=== PATIENT | female | born 1960 | race Caucasian/White ===

== ENCOUNTER → 2018-03-13 16:54 | Outpatient (CLI) | payer OTHER, SELFPAY ==
--- NOTE | 2018-03-13 17:33 | MRI_ITS ---
STUDY: MRI BRAIN WITH AND WITHOUT CONTRAST REASON FOR EXAM: Female, 57 years old. Multiple sclerosis, recheck. No new symptoms. TECHNIQUE: Standardized multiplanar fat and water weighted pulse sequences were obtained. 8 ml of Gadavist contrast material was administered intravenously for the contrast portion of the examination. COMPARISON: None. FINDINGS: There is mild cerebral atrophy with widening of the extra-axial spaces and ventricular dilatation. There are diffuse periventricular/pericallosal and subcortical white matter signal abnormalities which in comparison to the March 2016 exam are in a very similar distribution without evidence of new focal lesion. Postcontrast exam demonstrates no evidence of enhancement to suggest active demyelination. There is an overall pericallosal T1 low signal similar to prior exam.There is no evidence for recent intracranial ischemia or other cause of cytotoxic edema on diffusion weighted imaging (DWI). Normal T2* images of the brain without demonstrated susceptibility artifact. There is no demonstrated hemosiderin stain. Normal bilateral basal ganglia. Normal thalami. There is no extra-axial fluid accumulation. Normal flow voids within the major intracranial circulation suggesting patency by spin echo criteria. Normal venous enhancement. There is no enhancing intra-axial or extra-axial abnormality. Normal sella turcica, pituitary gland, infundibular stalk, optic chiasm and hypothalamus. Normal tectal plate and pineal gland. Normal midbrain, kristian and medulla. Normal cerebellum. Normal basal cisterns. Normal bilateral temporal bones. Normal bilateral internal auditory canals. No demonstrated orbital abnormality, within the constraints of a routine brain study. Normal visualized paranasal sinuses. Normal calvarium and skull base. Normal visualized soft tissue structures. Normal visualized upper cervical spine. MRI/Brain W/WO Contrast IMPRESSION: Overall similar pericallosal, periventricular and subcortical white matter diffuse lesions consistent with known demyelination compared to the 05 March 2016 exam. No evidence of active demyelination with enhancement. No evidence of acute intracranial process. Electronically Signed: Colby James DO at 20:26 EDT , Service support ,
== END ==
PROVIDERS: Family Provider Family Medicine; PCP Family Medicine
DX: G35 Multiple sclerosis (principal)
CPT/HCPCS: 70553; A9585

== ENCOUNTER → 2018-04-24 07:04 | Outpatient (CLI) | payer OTHER, SELFPAY ==
[2018-04-24 10:43] LABS: Absolute Neutrophil Count 2.3 X10^3/uL (2.0-7.7); Basophil# 0.02 X10^3/uL; Basophil% 0.3 % (0-1); Eosinophil# 0.16 X10^3/uL; Eosinophils% 2.7 % (0-5); Hematocrit 42.6 % (37-47); Hemoglobin 14.1 g/dl (12.0-15.0); Mean Corp Hgb Conc 33.1 g/gl (32-36); Mean Corpuscular Hgb 31.3 pg (27.0-32.0); Mean Corpuscular Volume 94.7 fL (81-99); Mean Platelet Vol. 9.8 fl (6.2-12.0); Monocyte# 0.65 X10^3/uL; Monocyte% 11.1 % (0-10); Neutrophil # 2.34 X10^3/uL (2.7-7.7); Neutrophil % 39.9 % (47-70); Platelet Count 267 K/mm3 (150-450); RBC Distribution Width CV 12.9 % (11.6-14.6); RBC Distribution Width SD 44.2 fl (35.1-43.9); White Blood Count 5.9 K/mm3 (4.4-11.0)
[2018-04-24 10:47] LABS: T4 Free Direct 0.84 ng/dL (0.76-1.46); Thyroid Stim Hormone (TSH) 5.34 uIU/mL (0.358-3.74); Vitamin D,25 Hydroxy 48.8 ng/mL (29.95-100.01)
[2018-04-24 10:50] LABS: POSITIVE COUNT NO; POSITIVE DIFFERENTIAL NO; POSITIVE MORPHOLOGY NO
== END ==
PROVIDERS: Family Provider Family Medicine; PCP Family Medicine; Visit Provider Family Medicine
DX: G35 Multiple sclerosis (principal)
CPT/HCPCS: 82306; 84439; 84443; 85025

== ENCOUNTER → 2018-05-05 13:13 | Outpatient (CLI) | payer OTHER, SELFPAY | PROVIDERS: Family Provider Family Medicine; PCP Family Medicine; Visit Provider Obstetrics & Gynecology | DX: N95.0 Postmenopausal bleeding (principal) | CPT/HCPCS: 76830; 76856; 93976 ==

== ENCOUNTER → 2018-10-27 10:12 | Outpatient (CLI) | payer OTHER, SELFPAY ==
[2018-10-27 12:32] LABS: T4 Free Direct 1.81 ng/dL (0.76-1.46); Thyroid Stim Hormone (TSH) 0.04 uIU/mL (0.358-3.74)
== END ==
PROVIDERS: Family Provider Family Medicine; PCP Family Medicine; Referring Provider Family Medicine; Visit Provider Family Medicine
DX: E03.9 Hypothyroidism, unspecified (principal)
CPT/HCPCS: 36415; 84439; 84443

== ENCOUNTER → 2019-01-23 14:52 | Outpatient (CLI) | payer OTHER, SELFPAY ==
[2019-01-23 18:01] LABS: T4 Free Direct 1.21 ng/dL (0.76-1.46); Thyroid Stim Hormone (TSH) 0.08 uIU/mL (0.358-3.74)
== END ==
PROVIDERS: Family Provider Family Medicine; PCP Family Medicine; Referring Provider Family Medicine; Visit Provider Family Medicine
DX: E03.9 Hypothyroidism, unspecified (principal)
CPT/HCPCS: 36415; 84439; 84443

== ENCOUNTER → 2019-03-15 11:01 | Outpatient (CLI) | payer OTHER, SELFPAY ==
[2019-03-15 12:51] LABS: T4 Free Direct 1.29 ng/dL (0.76-1.46); Thyroid Stim Hormone (TSH) 0.27 uIU/mL (0.358-3.74)
== END ==
PROVIDERS: Family Provider Family Medicine; PCP Family Medicine; Referring Provider Family Medicine; Visit Provider Family Medicine
DX: E03.9 Hypothyroidism, unspecified (principal)
CPT/HCPCS: 36415; 84439; 84443

== ENCOUNTER → 2019-05-30 13:57 | Outpatient (CLI) | payer OTHER, SELFPAY ==
[2019-06-06 12:59] LABS: HPV Reflexed? NOT INDICATED
== END ==
PROVIDERS: Visit Provider Obstetrics & Gynecology
DX: Z12.4 Encounter for screening for malignant neoplasm of cervix (principal)
CPT/HCPCS: 88175; G0145

== ENCOUNTER → 2019-06-19 08:39 | Outpatient (CLI) | payer OTHER, SELFPAY ==
--- NOTE | 2019-06-19 08:41 | BI_ITS ---
MAMMOGRAPHY - BILATERAL SCREENING REASON FOR EXAM: Female, 58 years old. Routine annual screening examination. PERTINENT HISTORY: Non-contributory. TECHNIQUE: Digital bilateral breast tyrese (3D mammographic acquisition) in the CC and MLO projections. 2-D mediolateral oblique (MLO) and craniocaudad (CC) views of both breasts were obtained. CAD: Full Field Digital Mammography with Computer Added Detection was performed. COMPARISON: Comparison is made with prior study dated August 05, 2017 and July 26, 2016. FINDINGS: Breast Composition: There are scattered areas of fibroglandular density. There are no dominant masses or suspicious calcifications. Stable benign-appearing small bilateral axillary lymph nodes. No other significant abnormalities are identified. There has been no significant change since the prior study. BI/SCREEN MAMM (CAD) W/TYRESE BILAT IMPRESSION: Stable bilateral screening mammogram. Yearly follow-up mammogram recommended. (A) ASSESSMENT CATEGORY: BIRADS Category 2: Benign. A letter regarding these results will be sent to the patient by the facility within 30 days. Approximately 10% of breast cancers are not detected by mammography. A normal mammogram should not delay biopsy of a clinically suspicious abnormality. [id number] Electronically Signed: Darren Pugh, at 9:46 EDT , Service support ,
== END ==
PROVIDERS: Family Provider Family Medicine; PCP Family Medicine; Referring Provider Obstetrics & Gynecology; Visit Provider Obstetrics & Gynecology
DX: Z12.31 Encounter for screening mammogram for malignant neoplasm of breast (principal)
CPT/HCPCS: 77063; 77067

== ENCOUNTER → 2020-02-04 08:17 | Outpatient (CLI) | payer OTHER, SELFPAY ==
[2020-02-04 11:31] LABS: T4 Free Direct 1.05 ng/dL (0.76-1.46); Thyroid Stim Hormone (TSH) 4.37 uIU/mL (0.358-3.74)
== END ==
PROVIDERS: PCP Family Medicine; Referring Provider Family Medicine; Visit Provider Family Medicine
DX: E03.9 Hypothyroidism, unspecified (principal); E55.9 Vitamin D deficiency, unspecified
CPT/HCPCS: 36415; 82306; 84439; 84443

== ENCOUNTER → 2020-03-04 07:16 | Outpatient (CLI) | payer OTHER, SELFPAY ==
[2020-03-04 12:31] LABS: Free T3 1.8 pg/mL (2.18-3.98); T4 Free Direct 1.08 ng/dL (0.76-1.46); Thyroid Stim Hormone (TSH) 1.14 uIU/mL (0.358-3.74)
== END ==
PROVIDERS: PCP Family Medicine; Referring Provider Family Medicine; Visit Provider Family Medicine
DX: E03.9 Hypothyroidism, unspecified (principal)
CPT/HCPCS: 36415; 84439; 84443; 84481

== ENCOUNTER → 2020-07-11 11:56 | Outpatient (CLI) | payer OTHER, SELFPAY ==
--- NOTE | 2020-07-11 12:01 | BI_ITS ---
MAMMOGRAPHY - BILATERAL SCREENING REASON FOR EXAM: Female, 59 years old. Routine annual screening examination. PERTINENT HISTORY: Non-contributory. TECHNIQUE: Digital bilateral breast tyrese (3D mammographic acquisition) in the CC and MLO projections. 2-D mediolateral oblique (MLO) and craniocaudad (CC) views of both breasts were obtained. CAD: Full Field Digital Mammography with Computer Added Detection was performed. COMPARISON: Comparison is made with prior study dated 06/19/2019 and 08/05/2017. FINDINGS: Breast Composition: There are scattered areas of fibroglandular density. There are no dominant masses or suspicious calcifications. Stable small benign appearing bilateral axillary lymph nodes. No other significant abnormalities are identified. There has been no significant change since the prior study. BI/SCREEN MAMM (CAD) W/TYRESE BILAT IMPRESSION: Stable bilateral screening mammogram. Yearly follow-up mammogram recommended. (A) ASSESSMENT CATEGORY: BIRADS Category 2: Benign. A letter regarding these results will be sent to the patient by the facility within 30 days. Approximately 10% of breast cancers are not detected by mammography. A normal mammogram should not delay biopsy of a clinically suspicious abnormality. [id number] Electronically Signed: Darren Pugh, at 13:39 EST , Service support ,
== END ==
PROVIDERS: PCP Family Medicine; Referring Provider Student in an Organized Health Care Education/Training Program; Visit Provider Student in an Organized Health Care Education/Training Program
DX: Z12.31 Encounter for screening mammogram for malignant neoplasm of breast (principal)
CPT/HCPCS: 77063; 77067

== ENCOUNTER 2020-11-20 13:35 | Outpatient (RCR) | payer OTHER, SELFPAY ==
[2020-11-20] MEDS: COVID-19 VACC, MRNA(PFIZER)/PF 30 MCG/0.3 ML SYRINGE IM (09:56)
== END 2021-02-10 23:59 ==
LOC: IMMUN 13:35
PROVIDERS: PCP Family Medicine; Visit Provider Family Medicine
DX: Z23 Encounter for immunization (principal)
CPT/HCPCS: 0001A; 0002A; 91300

== ENCOUNTER → 2021-07-13 08:00 | Outpatient (CLI) | payer OTHER, SELFPAY ==
--- NOTE | 2021-07-13 08:03 | BI_ITS ---
MAMMOGRAPHY - BILATERAL SCREENING REASON FOR EXAM: Female, 60 years old. Routine annual screening examination. PERTINENT HISTORY: Non-contributory. TECHNIQUE: Digital bilateral breast tyrese (3D mammographic acquisition) in the CC and MLO projections. 2-D mediolateral oblique (MLO) and craniocaudad (CC) views of both breasts were obtained. CAD: Full Field Digital Mammography with Computer Added Detection was performed. COMPARISON: Comparison is made with prior study dated 07/11/2020 and 06/19/2019. FINDINGS: Breast Composition: There are scattered areas of fibroglandular density. There are no dominant masses or suspicious calcifications. Stable benign-appearing bilateral axillary lymph nodes. No other significant abnormalities are identified. There has been no significant change since the prior study. BI/SCRN MAMM (CAD)W/TYRESE BILAT IMPRESSION: Stable bilateral screening mammogram. Yearly follow-up mammogram recommended. (A) ASSESSMENT CATEGORY: BIRADS Category 2: Benign. A letter regarding these results will be sent to the patient by the facility within 30 days. Approximately 10% of breast cancers are not detected by mammography. A normal mammogram should not delay biopsy of a clinically suspicious abnormality. [id number] Electronically Signed: Darren Pugh MD at 8:59 EST , Service support ,
== END ==
PROVIDERS: PCP Family Medicine; Referring Provider Student in an Organized Health Care Education/Training Program; Visit Provider Student in an Organized Health Care Education/Training Program
DX: Z12.31 Encounter for screening mammogram for malignant neoplasm of breast (principal)
CPT/HCPCS: 77063; 77067

== ENCOUNTER 2021-11-24 07:28 | Outpatient (CLI) | payer OTHER, SELFPAY ==
[2021-11-24 10:11] LABS: Anion Gap 6 (5-15); BUN 20 mg/dL (7-18); Calcium,Total 9.2 mg/dL (8.5-10.1); Chloride 110 mmol/L (98-107); Cholesterol 192 mg/dL (200); Creatinine, Serum 1.05 mg/dL (0.55-1.02); EST Glomerular Filtration Rate 57 mL/min (>60); Est Glom Filt Rate - Afr Amer 69 mL/min (>60); Glucose 90 mg/dL (74-106); High Density Lipoprotein 52 mg/dL; Sodium Level 139 mmol/L (136-145); T4 Free Direct 1.14 ng/dL (0.76-1.46); Thyroid Stim Hormone (TSH) 2.45 uIU/mL (0.358-3.74); Triglycerides 96 mg/dL; Very Low Density Lipoprotein 19 mg/dL (5-40)
== END 2021-11-24 23:59 | disposition home or self-care (01) ==
LOC: MTLAB 07:30
PROVIDERS: PCP Family Medicine; Referring Provider Family Medicine; Visit Provider Family Medicine
DX: E03.9 Hypothyroidism, unspecified (principal); Z13.220 Encounter for screening for lipoid disorders
CPT/HCPCS: 36415; 80048; 80061; 84439; 84443

== ENCOUNTER → 2022-07-14 | Outpatient (CLI) | payer OTHER, SELFPAY ==
[2022-07-14 10:55] LABS: Vitamin D,25 Hydroxy 54.7 ng/mL
[2022-07-14 11:01] LABS: Cholesterol 207 mg/dL (200); High Density Lipoprotein 64 mg/dL; T4 Free Direct 1.25 ng/dL (0.76-1.46); Thyroid Stim Hormone (TSH) 2.16 uIU/mL (0.358-3.74); Triglycerides 106 mg/dL; Very Low Density Lipoprotein 21 mg/dL (5-40)
== END | disposition home or self-care (01) ==
LOC: MTLAB 08:07
PROVIDERS: PCP Family Medicine; Visit Provider Family Medicine
DX: E55.9 Vitamin D deficiency, unspecified (principal); E03.9 Hypothyroidism, unspecified; Z13.220 Encounter for screening for lipoid disorders
CPT/HCPCS: 36415; 80061; 82306; 84439; 84443

== ENCOUNTER → 2022-08-13 | Outpatient (CLI) | payer OTHER, SELFPAY ==
[2022-08-21 21:00] LABS: HPV APTIMA, High Risk Negative (Negative)
== END | disposition home or self-care (01) ==
LOC: LABSPEC 10:33
PROVIDERS: PCP Family Medicine; Visit Provider Student in an Organized Health Care Education/Training Program
DX: Z12.4 Encounter for screening for malignant neoplasm of cervix (principal)
CPT/HCPCS: 87624; 88175; G0145

== ENCOUNTER → 2022-08-20 | Outpatient (CLI) | payer OTHER, SELFPAY ==
--- NOTE | 2022-08-20 13:43 | BI_ITS ---
MAMMOGRAPHY - BILATERAL SCREENING REASON FOR EXAM: Female, 61 years old. Routine annual screening examination. PERTINENT HISTORY: Non-contributory. TECHNIQUE: Digital bilateral breast tyrese (3D mammographic acquisition) in the CC and MLO projections. 2-D mediolateral oblique (MLO) and craniocaudad (CC) views of both breasts were obtained. CAD: Full Field Digital Mammography with Computer Added Detection was performed. COMPARISON: Comparison is made with prior study dated 07/13/2021 and 07/11/2020. FINDINGS: Breast Composition: There are scattered areas of fibroglandular density. There are no dominant masses or suspicious calcifications. Stable small benign-appearing bilateral axillary lymph. No other significant abnormalities are identified. There has been no significant change since the prior study. BI/SCRN MAMM (CAD)W/TYRESE BILAT IMPRESSION: Stable bilateral screening mammogram. Yearly follow-up mammogram recommended. (A) ASSESSMENT CATEGORY: BIRADS Category 2: Benign. A letter regarding these results will be sent to the patient by the facility within 30 days. Approximately 10% of breast cancers are not detected by mammography. A normal mammogram should not delay biopsy of a clinically suspicious abnormality. [id number] Electronically Signed: Darren Pugh MD at 15:09 EST ,
== END | disposition home or self-care (01) ==
LOC: OPBI 13:42
PROVIDERS: PCP Family Medicine; Referring Provider Student in an Organized Health Care Education/Training Program; Visit Provider Student in an Organized Health Care Education/Training Program
DX: Z12.31 Encounter for screening mammogram for malignant neoplasm of breast (principal)
CPT/HCPCS: 77063; 77067

== ENCOUNTER → 2023-06-06 | Outpatient (CLI) | payer OTHER, SELFPAY ==
[2023-06-06 09:37] LABS: Bacteria 0 SEEN /hpf (None Seen); Mucous, Urine 0 SEEN /hpf (<or=2+); Red Blood Cells-Urine 0 SEEN /hpf (0-5); White Blood Cells 0 SEEN /hpf (0-5)
[2023-06-06 12:15] LABS: Hematocrit 42.7 % (37-47); Hemoglobin 14.4 g/dL (12.0-15.0); Mean Corp Hgb Conc 33.7 g/dL (32-36); Mean Corpuscular Hgb 31.1 pg (27.0-32.0); Mean Corpuscular Volume 92.2 fL (81-99); Mean Platelet Vol. 10.2 fl (6.2-12.0); Platelet Count 284 K/mm3 (150-450); RBC Distribution Width SD 40.7 fl (35.1-43.9); Red Blood Count 4.63 M/mm3 (4.2-5.4); White Blood Count 4.6 K/mm3 (4.4-11.0)
[2023-06-06 12:40] LABS: Vitamin B12 356 pg/mL (211-911); Vitamin D,25 Hydroxy 44.2 ng/mL
[2023-06-06 13:02] LABS: ALB/GLOB Ratio 0.9 RATIO (0.9-2.4); AST(SGOT) 21 U/L (15-37); Alanine Aminotransfer ALT/SGPT 32 U/L (13-56); Albumin, Serum 3.6 g/dL (3.2-5.0); Alkaline Phosphatase 60 U/L (45-117); Anion Gap 7 (5-15); BUN 20 mg/dL (7-18); BUN/Creat Ratio 21.2 RATIO (10-20); Calcium,Total 8.9 mg/dL (8.5-10.1); Chloride 106 mmol/L (98-107); Cholesterol 197 mg/dL (200); Creatinine, Serum 0.94 mg/dL (0.55-1.02); EST Glomerular Filtration Rate 64 mL/min (>60); Est Glom Filt Rate - Afr Amer 78 mL/min (>60); Globulin 4.2 g/dL (2.2-4.2); Glucose 81 mg/dL (74-106); High Density Lipoprotein 53 mg/dL; Iron 125 ug/dL (50-170); Potassium 3.9 mmol/L (3.5-5.1); Protein, Total 7.8 g/dL (6.4-8.2); Sodium Level 138 mmol/L (136-145); Thyroid Stim Hormone (TSH) 1.14 uIU/mL (0.358-3.74); Triglycerides 111 mg/dL; Very Low Density Lipoprotein 22 mg/dL (5-40)
[2023-06-06 15:44] LABS: Color, Urine Yellow (Yellow); Glucose, Dipstick Normal (Normal); Ketone-Dipstick Negative (Negative); Leukocyte Esterase-Dipstick Negative /ul (Negative); Nitrite-Dipstick Negative (Negative); Occult Blood-Urine Negative /ul (Negative); Protein-Dipstick Negative (Negative); Urine Bilirubin Dipstick Negative (Negative); Urine Clarity Sl. Cloudy (Clear); Urine Urobilinogen Normal (Normal)
[2023-06-06 16:30] LABS: Squamous Epithelial Cells - UA 0-5 SEEN /hpf (5-10)
== END | disposition home or self-care (01) ==
PROVIDERS: PCP Family Medicine; Referring Provider Family Medicine; Visit Provider Family Medicine
DX: E03.9 Hypothyroidism, unspecified (principal); Z71.3 Dietary counseling and surveillance; V65 Occupant of heavy transport vehicle injured in collision with railway train or railway vehicle; E55.9 Vitamin D deficiency, unspecified
CPT/HCPCS: 36415; 80053; 80061; 81001; 82306; 82607; 83540; 84443; 85027

== ENCOUNTER 2023-10-11 10:00 | Outpatient (RCR) | payer OTHER, SELFPAY ==
--- NOTE | 2023-08-15 09:43 | HP.PTEVAL ---
Patient's Visit Information Visit Information Visit Information: DAT CISNEROS is a 62 year old F referred to Physical Therapy by JP STEPHENS with a diagnosis of MS. Date of Evaluation: 08/15/23 Physical Therapist: José Henson, CMT, OCS, CSCS Visit Plan Frequency: 1x/Week Duration: 4-6 Weeks Plan: weekly x 4-6 to tweak HEP regarding: HS and gastroc streetch added today and pt to tweak HEP to ensure challenges on machines at [employer] for LE which she was already consistent with. If doing well next session, add ankle strength(band and SLS) and review her core exercises and how walking is going\ will f/u in 3 weeks due to busy holiday for patient. Subjective Subjective: Stephenie had MS for 16 yrs. used to walk long distances but in the last year has become more of a problem. Had to stop meds for a month last year and thinks she is worse since then. Had MRI in May and had some additional plaques. Friends think she is limping but she does not notice it. Went to MS doctor last week. She is here to see if she is limping. Retired. Sleep is Ok. Works out at [employer] 3-4x/week 30 min TM walking, R foot drags at 25 min. Got hiking sticks and walks [employer] but half way foot started to drag on R. 45 minutes to get around and get to car. leg press, hip abduction and does many machines for arms and legs and does sit ups and core workout. Basic aDLS are all good. No problems. Shopping no problem, just can't walk as far as she used to with fitness. Hobbiesl stitchery and cross stich. No problem. Objective Objective: Walks slightly wide SHANTELL and R foot slightly turned out with some diminished motor control once she is tired. Steps reciprocally with one rail. trasnfer I. AROM B hips and knees and ankles WFL -25 90/90 test, HS mod tight and 0 Df AROM max gastroc [id number]. strength LE 4/5 hips and knees and 4- ankle DF inv/ev. reflexes 2+/3 B patella and achilles with clonus sensation WNL to gross light touch in LE. Able to march and has good balance, can walk on toes but hard time walking on heels Balance/Special Test Scores Functional Gait Assessment Score: 29 % Disability: 3.3400 Lower Extremity Functional Score: 71 Goals Goal 1:: I appropriate HS stretching and ankle strength and approrpiate gym ex challenge. Goal Time Frame: 4-6 Weeks Goal 2:: Patient ambulate 30 minutes with difficulty Goal Time Frame: 4-6 Weeks Goal 3:: Pt feel 50% better overall. Goal Time Frame: 4-6 Weeks Rehabilitation Potential Physical Therapy Diagnosis: tighhtness and weakness creating difficulty with longer walks. Rehabilitation Potential: Good Anticipated Interventions Patient/Client Instruction: Educate patient on: Condition For the Purpose of:: To decrease pain, To increase ROM, To improve nutrient delivery to tissue and To improve muscle performance and motor function Therapeutic Exercise to Include: Strength training, Balance training and Flexibilty training For the Purpose of:: To improve nutrient delivery to tissue, To improve muscle performance and motor function and To increase tolerance to activity/condition/position Text: Thank you for the opportunity to evaluate your patient. For Medicare and Medicare HMO plans, please review the plan of care and approve it. It will need to be FAXED BACK to us at [phone] for Medicare purposes. For Medicare only, by signing this I certify the plan of care. Please let me know if there are questions or concerns regarding this plan of care. Physician Signature: Date:
--- NOTE | 2023-10-11 10:19 | HP.PTDCSUM ---
Discharge Summary D/C summary: It has been my pleasure to treat DAT CISNEROS referred by JP STEPHENS, with the diagnosis of MS for a total of 4 visit(s). Discharge Date: 10/11/23 Please see the following information for a summary of their discharge status. Subjective Subjective: Been doing workout at [employer] without a problem. Avoids longer walk sometimes as she is afraid of getting stuck(tired) and have to rest. Cannot stand on one foot. No pain. To doctor last August. MS doctor in November. Started new drug Overall Improvement % Improvement: 30 Objective Objective/Function: Walks without deficits today, steps reciprocal with one rail. SLS 10 seconds l and 6 on R. Walking on toes easily. Overall doing well. Goals Goal 1:: I appropriate HS stretching and ankle strength and approrpiate gym ex challenge. Goal Progress: Goal Met Goal 2:: Patient ambulate 30 minutes with difficulty Goal Progress: Goal Met Goal 3:: Pt feel 50% better overall. Goal Progress: Progressing Plan Plan: d/c to HEP and gym D/C Information Discharge Comments: Continue I in gym and via home walking program. d/c sentence: If there are questions or concerns regarding this patient's physical therapy, please feel free to call me at [phone]. Thank you for the referral of this patient. Sincerely, José Henson, DPT, OCS, CSCS Balance/Gait/Functional tests Balance/Special Test Scores Functional Gait Assessment Score: 29 % Disability: 3.3400 Lower Extremity Functional Score: 70 Improvement % Improvement: 30
== END 2023-10-11 19:00 | disposition home or self-care (01) ==
LOC: PT 10:00
PROVIDERS: PCP Family Medicine
DX: G35 Multiple sclerosis (principal)
CPT/HCPCS: 97110; 97161

== ENCOUNTER → 2023-10-11 | Outpatient (CLI) | payer OTHER, SELFPAY ==
--- OUTSIDE RECORDS SUMMARY | 2023-10-11 11:44 | XMS RPT_ITS | CCD ---
Author Name Unknown Address [address] [place] [address] [address] [place] [address] Organization [facility] Care Team Providers Care Unix Developer Name Role Phone Jonathon Perez MD Primary Care Provider JP STEPHENS Referring Unavailable JONATHON PEREZ Primary Care Unavailabl e Medications Completed/Discontinued Medications Medication Drug Class(es) Dates Sig (Normalized) Sig (Original) cholecalciferol 0.125 mg oral capsule (6 sources) Vitamin D take 1 capsule by mouth once daily Cholecalciferol, Vitamin D3, 5,000 unit cap Take 5,000 Units by mouth once daily. 0 Active Problems Problem Classification Problem Date Documented Da te Episodic/Chronic Multiple sclerosis (8 sources) Multiple sclerosis; Translations: [Multiple sclerosis] Onset: 01-24-2013 01-24-2013 Chronic Other aftercare (1 source) Patient encounter status; Translations: [Encounter for therapeutic drug level monitoring] Episodic Results Test Name Value Interpretation Reference Range Facil ity Encounters Encounter Date Encounter Type Care Provider Facility Start: 06-28-2023 End: 06-28-2023 ambulatory JP STEPHENS Facility:[facility] Start: 09-18-2022 Refill Emeli Thomas PA-C Work Phone: [facility] Procedures Date Procedure Procedure Detail Performing Clinician Start: 06-21-2022 BRAIN & CERVICAL SPI NE MRI DISCRETE DATA [facility] Provider Start: 06-21-2022 Mri brain brain stem w/o w/contrast material Emeli Thomas PA-C Work Phone: Start: 12-22-2021 Adult depression screening assessment Emeli Thomas PA-C Work Phone: Start: 11-13-2019 Adult depression screening assessment Emeli Thomas PA-C Work Phone: Plan of Treatment Date Care Activity Detail Author Start: 05-27-2025 DIABETES SCREEN DIABETES SCREEN [facility] Start: 12-24-2023 DIABETES SCREEN DIABETES SCREEN [facility] Start: 12-22-2022 Adult depression scr eening assessment DEPRESSION SCREENING [facility] Start: 09-05-2022 DEPRESSION ASSESSMENT DEPRESSION ASS [facility] Start: 05-06-2022 Influenza vaccination [facility] Start: 03-23-2022 COVID-19 VACCINE (5 - Booster for Pfizer series) COVID-19 VACCINE (5 - Booster for Pfizer series) [facility] Start: 01-09-2022 COVID-19 VACCINE (4 - Booster for Pfizer series) COVID-19 VACCINE (4 - Booster for Pfizer series) [facility] Start: 09-05-2021 [facility] Start: 05-27-2021 COVID-19 VACCINE (3 - Booster for Pfizer series) COVID-19 VACCINE (3 - Booster for Pfizer series) [facility] Start: 11-12-2020 Adult depression scr eening assessment DEPRESSION SCREENING [facility] Start: 2012 SHINGRIX VACCINE (1 of 2) SHINGRIX V ACCINE (1 of 2) [facility] Start: 2007 COLOGUARD (FIT-DNA) COLOGUARD (FIT-D NA) [facility] Start: 2007 Colonoscopy COLONOSCOPY [facility] Start: 2007 COLORECTAL CANCER SCREENING COLORECTAL CANCER SCREENING [facility] Start: [address] COLONOGRAPHY [facility] Start: 2007 FECAL OCCULT BLOOD FECAL OCCULT BLOO D [facility] Start: 2007 LIPID SCREEN LIPID SCREEN [facility] Start: 2007 SIGMOIDOSCOPY SIGMOIDOSCOPY [facility] Start: 2002 Mammography MAMMOGRAM [facility] Start: 1992 HPV TESTING HPV TESTING [facility] Start: 1983 PAP TESTING PAP TESTING [facility] Start: 1981 Urine microalbumin profile DTAP,TDAP ,TD (1 - Tdap) [facility] Start: 1980 HEPATITIS C SCREENING HEPATITIS C SC REENING [facility] Start: 1980 HIV SCREENING [facility] SCREENING [facility] Payers Date Payer Category Payer Unknown [id number] 2018 Unknown MMO MMO [employer] [id number] 2018-Present [phone] [address] [place] [address] PPO [id number] 2018 Unknown MMO MMO [employer] [id number] 2018-Present [phone] [address] [place] [address] PPO [id number] Social History Date Type Detail Facility Start: 02-19-2016 Tobacco smoking stat us [facility] Never smoked tobacco [facility] Start: 12-23-2020 Alcohol intake Current drinke r of alcohol (finding) [facility] Start: 1960 Sex Assigned At Female [facility] Start: 11-23-2021 End: 12-03-2021 Exposure to SARS-CoV-2 (event) Not sure [facility] Start: 02-19-2016 Tobacco use and exposure Smoke less tobacco non-user [facility] Progress note 06-28-2023 Note Date & Type Note Facility 06-28-2023 Note HNO ID: [id number] Author: Ira Jimenes RT(R) Service: ? Author Type: Technologist Type: Progress Notes Filed: 06/28/2023 2:22 PM Note Text: Radiology Service Progress Note DATE OF SERVICE: June 28, 2023 TIME: 2:21 PM PATIENT IDENTITY VERIFICATION COMPLETED USING TWO (2) STANDARD IDENTIFIERS: Name and Date of confirmed by patient verbally. FALL SCREENING: Has the patient had 2 falls in the last year or 1 fall with injury or currently using an Ambulatory Assistive Device (Walker, Cane, Wheelchair, Crutches, etc.)? No PATIENT GENDER DATA: Female. status: : No status: NO. PATIENT RELEVANT IMPLANT DATA REVIEWED: Yes ALLERGIES: Reviewed and unchanged CONTRAST ALLERGY: NO. EXAM: MRI - CONTRAST TYPE: GROUP II PERIPHERAL IV DATA: Ambulatory: A peripheral IV was started in the Left antecubital site with a Angio cath: 22 gauge. RADIOLOGY DEPARTMENT: MR; Exam(s) Completed: Head: Multiple Sclerosis SIGNATURE: Ira Jimenes RT(R) PATIENT NAME: Dat Cisneros DATE: June 28, 2023 TIME: 2:21 PM [facility] Note 09-20-2022 Telephone Encounter - FEDE Palomares - 09/20/2022 10:41 AM EST Note Date & Type Note Facility 09-20-2022 Miscellaneous Notes Formattin g of this note is different from the original. Source : mychart from pharmacy requesting refill. Delivery : e-script Requested Prescriptions Pending Prescriptions Disp Refills AVONEX 30 mcg/0.5 mL injection pen kit [Pharmacy Med Name: AVONEX 30 MCG AUTOINJ 4 PEN KIT] 1 Kit 1 Sig: INJECT 0.5 ML (30 MCG) INTO THE MUSCLE ONCE A WEEK DX : Patient last seen 12/24/2021 Next Appointment : FEDE Palomares documented in this encounter [facility] Progress note 09-07-2022 Note Date & Type Note Facility 09-07-2022 Note HNO ID: [id number] Author: FEDE Palomares Service: ? Author Type: Health Hospitality Aide Type: Progress Notes Filed: 10/05/2022 12:54 PM Note Text: Requested by: Primitive Makeup Freed: [id number] Medication Requested: Avonex Insurance Name: MMO [employer] Insurance [place] phone #:[phone] Status pending Previous request approved to 11/22/2022 [facility] History of Present illness Narrative 09-07-2022 FEDE Palomares - 09/07/2022 12:01 PM EST Note Date & Type Note Facility 09-07-2022 History of Presen t illness Narrative Requested by: Primitive Makeup Freed: [id number] Medication Requested: Avonex Insurance Name: MMO [employer] Insurance [place] phone #:[phone] Status pending Previous request approved to 11/22/2022 documented in this encounter [facility] Note 08-02-2022 Telephone Encounter - FEDE Palomares - 08/02/2022 9:41 AM EST Note Date & Type Note Facility 08-02-2022 Miscellaneous Notes Formattin g of this note is different from the original. Source : electronic from pharmacy requesting refill. Delivery : e-script Requested Prescriptions Pending Prescriptions Disp Refills AVONEX 30 mcg/0.5 mL injection pen kit [Pharmacy Med Name: AVONEX 30 MCG AUTOINJ 4 PEN KIT] 1 Kit Sig: INJECT 30 MCG INTO THE MUSCLE ONCE A WEEK DX : Patient last seen 12/23/2020 Next Appointment : none FEDE Palomares documented in this encounter [facility] History of Present illness Narrative 06-21-2022 RT Barbara(R) - 06/21/2022 8:00 AM EDT Note Date & Type Note Facility 06-21-2022 History of Presen t illness Narrative Radiology Service Progress Note DATE OF SERVICE: June 21, 2022 TIME: 9:46 AM PATIENT IDENTITY VERIFICATION COMPLETED USING TWO (2) STANDARD IDENTIFIERS: Name and Date of confirmed by patient verbally. FALL SCREENING: Has the patient had 2 falls in the last year or 1 fall with injury or currently using an Ambulatory Assistive Device (Walker, Cane, Wheelchair, Crutches, etc.)? No PATIENT GENDER DATA: Female. status: : No status: NO. PATIENT RELEVANT IMPLANT DATA REVIEWED: Yes ALLERGIES: Reviewed and unchanged CONTRAST ALLERGY: NO. EXAM: MRI - CONTRAST TYPE: GROUP II PERIPHERAL IV DATA: Ambulatory: A peripheral IV was started in the Left antecubital site with a Butterfly: 23 gauge. RADIOLOGY DEPARTMENT: MR; Exam(s) Completed: Head: Multiple Sclerosis SIGNATURE: RT Barbara(R) PATIENT NAME: Dat Cisneros DATE: June 21, 2022 TIME: 9:46 AM documented in this encounter [facility] History of Present illness Narrative 04-13-2022 Rebecca Hartley - 04/13/2022 10:10 AM EDT Note Date & Type Note Facility 04-13-2022 History of Presen t illness Narrative Received request on a fax coversheet asking for all office notes,labs Procedures,MRI/CT. Will scan into patients chart. Sent over to Medical Records [id number] Sophia R documented in this encounter [facility] Note 12-22-2021 Telephone Encounter - Antoinette Ledezma RN - 12/22/2021 9:02 AM EDT Note Date & Type Note Facility 12-22-2021 Miscellaneous Notes Called number, lab is [facility] Sent Rabbit TVt message to patient advising to contact scheduling to setup lab appt or just go to lab Advised we've never set up lab appt for patient before documented in this encounter [facility] Evaluation note Note Date & Type Note Facility documented in this encounter [facility] Reason for Referral Specialty Diagnoses / Procedures Referred By Evert benavides Referred To Contact MR IMAGING Diagnoses Multiple sclerosis (HCC) Medication monitoring encounter Multiple sclerosis, relapsing-remitting (HCC) Procedures MRI BRAIN WO/W IVCON MRI BRAIN BRAIN STEM W/O W/CONTRAST MATERIAL Emeli Thomas PA-C [address] [place] [address] Mr Imaging Referral ID Status Reason Start Date Expiration Date V isits Requested Visits Authorized [id number] Closed Auto-Generate d Referral 12/24/2021 07/10/2022 1 1 Summary Purpose Family History No Family History Records Found Advance Directives No Advanced Directives Records Found Additional Source Comments Source Comments (unrecognize d section and content) In the event this informatio n is protected by the Federal Confidentiality of Alcohol and Drug Abuse Patient Records regulations: The Federal rules restrict any use of the information to criminally investigate or prosecute any alcohol or drug abuse patient.[facility] the event this information is protected by the Federal Confidentiality of Alcohol and Drug Abuse Patient Records regulations: The Federal rules restrict any use of the information to criminally investigate or prosecute any alcohol or drug abuse patient.[facility] the event this information is protected by the Federal Confidentiality of Alcohol and Drug Abuse Patient Records regulations: The Federal rules restrict any use of the information to criminally investigate or prosecute any alcohol or drug abuse patient.[facility] the event this information is protected by the Federal Confidentiality of Alcohol and Drug Abuse Patient Records regulations: The Federal rules restrict any use of the information to criminally investigate or prosecute any alcohol or drug abuse patient.[facility] the event this information is protected by the Federal Confidentiality of Alcohol and Drug Abuse Patient Records regulations: The Federal rules restrict any use of the information to criminally investigate or prosecute any alcohol or drug abuse patient.[facility] the event this information is protected by the Federal Confidentiality of Alcohol and Drug Abuse Patient Records regulations: The Federal rules restrict any use of the information to criminally investigate or prosecute any alcohol or drug abuse patient.[facility] Care Teams (unrecognized sec tion and content) Unix Developer Relationship Specialty Start Date End Date Jonathon Perez MD [address] [place], [place] [id number] PCP - General 11/28/07 Unix Developer Relationship Specialty Start Date End Date Jonathon Perez MD [address] [place], [place] [address] PCP - General 11/28/07 Unix Developer Relationship Specialty Start Date End Date Jonathon Perez MD [address] [facility] [place] [place] [address] PCP - General 11/28/07 Unix Developer Relationship Specialty Start Date End Date Jonathon Perez MD [address] [place] [address] PCP - General 11/28/07 Reason for Visit (unrecogniz ed section and content) Reason Comments Radiology MRI Specialty Diagnoses / Procedures Referred By Evert t Referred To Contact MR IMAGING Diagnoses Multiple sclerosis (HCC) Medication monitoring encounter Multiple sclerosis, relapsing-remitting (HCC) Procedures MRI BRAIN WO/W IVCON MRI BRAIN BRAIN STEM W/O W/CONTRAST MATERIAL Emeli Thomas PA-C [address] [place] [address] Mr Imaging Referral ID Status Reason Start Date Expiration Date V isits Requested Visits Authorized [id number] Closed Auto-Generate d Referral 12/24/2021 07/10/2022 1 1 Reason Comments Refill Request Reason Comments Medication Preauthorization Avonex INFORMATION SOURCE (unrecogn ized section and content) FOR RECORDS PERTAINING TO PATIENTS WHO ARE OR HAVE BEEN ENROLLED IN A CHEMICAL DEPENDENCY/SUBSTANCEABUSE PROGRAM, SOME INFORMATION MAY BE OMITTED. This clinical summary was aggregated from multiple sources. Caution should be exercised in using it in the provision of clinical care. This summary normalizes information from multiple sources, and as a consequence, information in this document may materially change the coding, format and clinical context of patient data. In addition, data may be omitted in some cases. CLINICAL DECISIONS SHOULD BE BASED ON THE PRIMARY CLINICAL RECORDS. [employer] provides no warranty or guarantee of the accuracy or completeness of information in this document.
[2023-10-11 12:28] LABS: Vitamin B12 603 pg/mL (211-911)
== END | disposition home or self-care (01) ==
LOC: MTLAB 10:26
PROVIDERS: PCP Family Medicine; Referring Provider Family Medicine; Visit Provider Family Medicine
DX: E53.8 Deficiency of other specified B group vitamins (principal)
CPT/HCPCS: 36415; 82607

== ENCOUNTER → 2023-12-02 | Outpatient (CLI) | payer OTHER, SELFPAY ==
--- NOTE | 2023-12-02 10:08 | BI_ITS ---
MAMMOGRAPHY - BILATERAL SCREENING REASON FOR EXAM: Female, 63 years old. Routine annual screening examination. PERTINENT HISTORY: Non-contributory. TECHNIQUE: Digital bilateral breast tyrese (3D mammographic acquisition) in the CC and MLO projections. 2-D mediolateral oblique (MLO) and craniocaudad (CC) views of both breasts were obtained. CAD: Full Field Digital Mammography with Computer Added Detection was performed. COMPARISON: Comparison is made with prior study dated August 20, 2022 and July 13, 2021. FINDINGS: Breast Composition: There are scattered areas of fibroglandular density. There are no dominant masses or suspicious calcifications. Stable small benign-appearing bilateral axillary lymph nodes. No other significant abnormalities are identified. There has been no significant change since the prior study. BI/SCRN MAMM (CAD)W/TYRESE BILAT IMPRESSION: Stable bilateral screening mammogram. Yearly follow-up mammogram recommended. (A) ASSESSMENT CATEGORY: BIRADS Category 2: Benign. A letter regarding these results will be sent to the patient by the facility within 30 days. Approximately 10% of breast cancers are not detected by mammography. A normal mammogram should not delay biopsy of a clinically suspicious abnormality. [id number] Electronically Signed: Darren Pugh MD at 10:53 EDT ,
== END | disposition home or self-care (01) ==
LOC: OPBI 10:08
PROVIDERS: PCP Family Medicine; Referring Provider Family Medicine; Visit Provider Family Medicine
DX: Z12.31 Encounter for screening mammogram for malignant neoplasm of breast (principal)
CPT/HCPCS: 77063; 77067

== ENCOUNTER → 2023-12-12 | Outpatient (CLI) | payer OTHER, SELFPAY ==
[2023-12-12 13:12] LABS: ALB/GLOB Ratio 0.9 RATIO (0.9-2.4); AST(SGOT) 20 U/L (15-37); Alanine Aminotransfer ALT/SGPT 25 U/L (13-56); Albumin, Serum 3.6 g/dL (3.2-5.0); Alkaline Phosphatase 58 U/L (45-117); Anion Gap 7 (5-15); BUN 19 mg/dL (7-18); BUN/Creat Ratio 19.7 RATIO (10-20); Calcium,Total 8.9 mg/dL (8.5-10.1); Chloride 106 mmol/L (98-107); Creatinine, Serum 0.96 mg/dL (0.55-1.02); EST Glomerular Filtration Rate 62 mL/min (>60); Est Glom Filt Rate - Afr Amer 76 mL/min (>60); Globulin 4.1 g/dL (2.2-4.2); Glucose 93 mg/dL (74-106); Potassium 3.8 mmol/L (3.5-5.1); Protein, Total 7.7 g/dL (6.4-8.2); Sodium Level 139 mmol/L (136-145)
[2023-12-12 17:34] LABS: Absolute Lymphocyte Count 1.83 X10^3/uL (0.83-4.51); Absolute Neutrophil Count 3.2 X10^3/uL (2.0-7.7); Basophil# 0.04 X10^3/uL; Basophil% 0.7 % (0-1); Eosinophil# 0.17 X10^3/uL; Eosinophils% 2.9 % (0-5); Hematocrit 41.9 % (37-47); Hemoglobin 13.9 g/dL (12.0-15.0); Lymphocyte # 1.83 X10^3/ul (0.83-4.51); Lymphocyte % 30.8 % (19-41); Mean Corp Hgb Conc 33.2 g/dL (32-36); Mean Corpuscular Hgb 30.8 pg (27.0-32.0); Mean Corpuscular Volume 92.7 fL (81-99); Mean Platelet Vol. 9.3 fl (6.2-12.0); Monocyte# 0.69 X10^3/uL; Monocyte% 11.6 % (0-10); NRBC Flagged by Analyzer 0 % (0-5); Neutrophil % 53.7 % (47-70); Platelet Count 344 K/mm3 (150-450); RBC Distribution Width CV 12.7 % (11.6-14.6); Red Blood Count 4.52 M/mm3 (4.2-5.4)
[2023-12-13 05:13] LABS: Immunoglobulin A 428 mg/dL (87-352); Immunoglobulin G 1421 mg/dL (586-1602); Immunoglobulin M 94 mg/dL (26-217)
== END | disposition home or self-care (01) ==
LOC: MTLAB 10:36
PROVIDERS: PCP Family Medicine
DX: Z79.899 Other long term (current) drug therapy (principal)
CPT/HCPCS: 36415; 80053; 82784; 85025

== ENCOUNTER 2024-05-14 18:58 | Emergency (ER) | payer OTHER, SELFPAY ==
[2024-05-14 18:58] VITALS: BP 135/91; PULSE 57; RESP 16; TEMP 35.4; O2SAT 98
--- NOTE | 2024-05-14 20:06 | RAD_ITS ---
STUDY: X-RAY - RIGHT ANKLE REASON FOR EXAM: Female, 63 years old. FALL TECHNIQUE: 3 view(s) of the ankle. COMPARISON: None. FINDINGS: Normal visualized distal tibia and fibula. Normal medial and lateral malleoli. Normal tibiotalar articulation and ankle mortise. Normal visualized talus and calcaneus. The visualized subtalar, talonavicular, calcaneocuboid and tarsal articulations are normal. There is no demonstrated fracture. Prominent lateral soft tissue swelling. RAD/Ankle min 3 Views IMPRESSION: No acute fracture or dislocation. Electronically Signed: Nolan Espinoza MD at 20:35 EDT ,
[2024-05-14 20:58] VITALS: BP 124/77; PULSE 57; RESP 16; O2SAT 99
--- NOTE | 2024-05-14 21:33 | EX.ED.DYSGE1 ---
HPI History of Present Illness Chief Complaint: Lower Extremity Injury Narrative Narrative: Chief complaint and HPI: Right ankle injury. Patient states prior to arrival she twisted her right ankle. She states that it immediately began to swell. She endorses pain mostly to the lateral and medial malleolus. She has used ice. Tried elevation. She describes the pain as achy that is worse with ambulation. She denies any knee pain or foot pain. Denies numbness or tingling. Did take Aleve prior to arrival. Review of systems: See HPI Medications: As listed on the chart Allergies: As listed on the chart PFSH: Per chart Vital signs: As listed on the chart. Reviewed. Physical exam: Gen: A&O x3, NAD Head: Normocephalic, atraumatic Eyes: No sclera icterus, conjunctiva clear ENT: Moist mucous membranes Neck: Full range of CV: Regular Rate Resp: Nonlabored Respirations Musc: Patient has swelling to the right ankle compared to the left, most of the swelling is located to the lateral malleolus, full active and passive range of motion of the ankle and knee, knee/calf/foot nontender to palpation, patient is tender to palpation in the ankle mostly at the lateral malleolus, mild ecchymosis, DP/PT pulses plus 2 out of 4 bilaterally, compartments soft, normal capillary refill, sensation intact Skin: Warm, dry Neuro: Alert, oriented, grossly intact Psych: Cooperative, appropriate mood and affect [facility] Medical History (Updated 05/14/24 @ 21:[address] Dami Rocha, ) Multiple sclerosis Allergy/AdvReac Type Severity Reaction Status Date / Time No Known Allergies Allergy Verified 05/14/24 19:00 Social History Smoking Status: Never smoker EXAM Physical Exam Const Vital Signs: 05/14/24 18:58 05/14/24 20:58 Temperature 95.7 F L Temperature Source Temporal Pulse Rate 57 L 57 L Respiratory Rate 16 16 Blood Pressure 135/91 H 124/77 H Blood Pressure Mean 105 92 Pulse Ox 98 99 Oxygen Delivery Method Room Air Room Air MDM MDM MDM Narrative Medical decision making narrative: 63-year-old female presents for evaluation of right ankle injury. Differential diagnosis includes but is not limited to sprain versus fracture. X-ray of the right ankle was obtained. The 3 view x-ray was personally reviewed and interpreted by myself as well as radiology. No fracture or dislocation. Patient's injury is likely secondary to right ankle sprain. Aircast and crutches ordered for symptom relief. Weightbearing as tolerated. Follow-up with orthopedic physician as well as PCP. Patient was educated on ice and elevation. Educated to take ibuprofen and Tylenol as needed for pain. Patient declined stronger medication. Return precautions explained. Patient stable to discharge home. Impression: 1. Right ankle sprain Radiography Diagnostic Testing: Clinical Impression(s) from Imaging Studies Ankle X-Ray 05/14/24 20:06 IMPRESSION: No acute fracture or dislocation. Electronically Signed: Nolan Espinoza MD at 20:35 EDT , Discharge Plan Triage Chief Complaint: Lower Extremity Injury ED Provider: Dami Rocha Dx/Rx/DC Orders Clinical Impression: Right ankle sprain Instructions: ED Ankle Sprain (Adult) Primary Care Provider: Jonathon Thakur Referrals: Greyson Patel MD [Med Staff - Active Staff] - 3-5 Days if not improving Jonathon Thakur MD [Primary Care Provider] - 3-5 Days Print Language: Slovak Disposition Disposition: Home, Self Care
[2024-05-14 22:00] VITALS: RESP 16
[2024-05-14 22:07] VITALS: BP 122/60; PULSE 60; RESP 16; TEMP 36.6; O2SAT 96
== END 2024-05-14 22:25 | disposition home or self-care (01) ==
LOC: ED 21:43
PROVIDERS: Emergency Provider Surgery; PCP Family Medicine; Visit Provider Surgery
DX: S93.401A Sprain of unspecified ligament of right ankle, initial encounter (principal); X50.1XXA Overexertion from prolonged static or awkward postures, initial encounter
CPT/HCPCS: 73610; 99283

== ENCOUNTER → 2024-06-14 | Outpatient (CLI) | payer OTHER, SELFPAY ==
[2024-06-14 10:27] LABS: Absolute Lymphocyte Count 1.77 X10^3/uL (0.83-4.51); Absolute Neutrophil Count 2.4 X10^3/uL (2.0-7.7); Basophil# 0.02 X10^3/uL; Basophil% 0.4 % (0-1); Eosinophil# 0.15 X10^3/uL; Hematocrit 43.5 % (37-47); Hemoglobin 14.4 g/dL (12.0-15.0); Lymphocyte # 1.77 X10^3/ul (0.83-4.51); Lymphocyte % 34.9 % (19-41); Mean Corp Hgb Conc 33.1 g/dL (32-36); Mean Corpuscular Hgb 30.7 pg (27.0-32.0); Mean Corpuscular Volume 92.8 fL (81-99); Mean Platelet Vol. 10.1 fl (6.2-12.0); Monocyte% 13.8 % (0-10); NRBC Flagged by Analyzer 0 % (0-5); Neutrophil # 2.42 X10^3/uL (2.7-7.7); Neutrophil % 47.7 % (47-70); Platelet Count 288 K/mm3 (150-450); RBC Distribution Width CV 12.4 % (11.6-14.6); RBC Distribution Width SD 42.5 fl (35.1-43.9); Red Blood Count 4.69 M/mm3 (4.2-5.4); White Blood Count 5.1 K/mm3 (4.4-11.0)
[2024-06-14 10:57] LABS: AST(SGOT) 20 U/L (15-37); Alanine Aminotransfer ALT/SGPT 22 U/L (13-56); Albumin, Serum 3.9 g/dL (3.2-5.0); Alkaline Phosphatase 66 U/L (45-117); Anion Gap 5 (5-15); BUN 22 mg/dL (7-18); BUN/Creat Ratio 19.8 RATIO (10-20); Calcium,Total 9.5 mg/dL (8.5-10.1); Chloride 108 mmol/L (98-107); Creatinine, Serum 1.11 mg/dL (0.55-1.02); EST Glomerular Filtration Rate 53 mL/min (>60); Est Glom Filt Rate - Afr Amer 64 mL/min (>60); Glucose 92 mg/dL (74-106); Potassium 3.9 mmol/L (3.5-5.1); Protein, Total 7.9 g/dL (6.4-8.2); Sodium Level 141 mmol/L (136-145)
[2024-06-14 11:03] LABS: T4 Free Direct 0.88 ng/dL (0.76-1.46)
[2024-06-15 08:12] LABS: Immunoglobulin G 1332 mg/dL (586-1602)
== END | disposition home or self-care (01) ==
PROVIDERS: PCP Family Medicine; Referring Provider Nurse Practitioner Gerontology; Visit Provider Nurse Practitioner Gerontology
DX: Z79.899 Other long term (current) drug therapy (principal)
CPT/HCPCS: 36415; 80053; 82784; 84439; 84443; 85025

== ENCOUNTER 2024-06-27 13:35 | Outpatient (RCR) | payer OTHER, SELFPAY | END 2024-07-05 23:59 | LOC: NS 13:35 | PROVIDERS: PCP Family Medicine; Referring Provider Family Medicine; Visit Provider Family Medicine | DX: Z71.3 Dietary counseling and surveillance (principal); E66.3 Overweight; Z68.28 Body mass index [BMI] 28.0-28.9, adult | CPT/HCPCS: 97802 ==

== ENCOUNTER 2024-07-25 14:33 | Outpatient (RCR) | payer OTHER, SELFPAY | END 2024-08-04 23:59 | LOC: NS 14:33 | PROVIDERS: PCP Family Medicine; Referring Provider Family Medicine; Visit Provider Family Medicine | DX: Z71.3 Dietary counseling and surveillance (principal); E66.3 Overweight; Z68.28 Body mass index [BMI] 28.0-28.9, adult | CPT/HCPCS: 97803 ==

== ENCOUNTER → 2024-08-23 | Outpatient (CLI) | payer OTHER, SELFPAY ==
[2024-08-23 13:09] LABS: T4 Free Direct 1.07 ng/dL (0.76-1.46)
== END | disposition home or self-care (01) ==
PROVIDERS: PCP Family Medicine; Referring Provider Family Medicine; Visit Provider Family Medicine
DX: E03.9 Hypothyroidism, unspecified (principal)
CPT/HCPCS: 36415; 84439; 84443

== ENCOUNTER → 2024-12-04 | Outpatient (CLI) | payer OTHER, SELFPAY ==
--- NOTE | 2024-12-04 07:30 | BD_ITS ---
PROCEDURE: DEXA BONE DENSITY STUDY 12/04/2024 REASON FOR EXAM: F, age 64 y/o . Postmenopausal. TECHNIQUE: DXA scan of the lumbar spine and both hips, using make and model. REFERENCE LINKS: ISCD Adult Positions COMPARISON: Comparison is made with prior study dated June 18, 2010. FINDINGS: BMD and T-SCORES Lumbar spine: 0.916 g/cm2, T-Score -1.2 L1 through L4 Change from prior: There has been a loss of 12% as compared to prior study. Left femoral neck: 0.646 g/cm2, T-Score -1.8 Femoral neck comparison data not recommended for monitoring change. Left total hip: 0.764 g/cm2, T-Score -1.5 Change from prior: Loss of 17.6% Right femoral neck: 0.653 g/cm2, T-Score -1.8 Femoral neck comparison data not recommended for monitoring change. Right total hip: 0.786 g/cm2, T-Score -1.3 Change from prior: Loss of 15.6% The patient doesmeet the pharmacological treatment recommendations for prevention of osteoporosis BD/Dexa Bone Density Study IMPRESSION: Osteopenia. Recommend follow-up as clinically warranted. Reading Location: [facility]
--- NOTE | 2024-12-04 07:30 | BI_ITS ---
EXAM: SCRN MAMM (CAD)W/TYRESE BILAT DATE: 12/04/2024 CLINICAL HISTORY: F, Age 64 y/o , SCREENING No family history. BREAST CANCER RISK ASSESSMENT: Not assessed. TECHNIQUE: Bilateral screening digital breast tomosynthesis with 2D and 3D images. Computer aided detection. COMPARISON: Prior exam(s) dated December 02, 2023.. FINDINGS: TISSUE DENSITY: The breast tissue is composed of scattered area of fibroglandular density. Bilateral Breast Mammographic Findings: No significant masses, calcifications or other abnormalities are identified. No suspicious masses, areas of developing architectural distortion, or suspicious calcifications. There has been no significant interval change. Stable small bilateral fat containing axillary lymph nodes. BI/SCRN MAMM (CAD)W/TYRESE BILAT IMPRESSION: Right Breast: BIRADS 1 NEGATIVE. Left Breast: BIRADS 1 NEGATIVE. OVERALL FINAL ASSESSMENT: BIRADS 2 BENIGN FINDING RECOMMENDATION: Routine annual follow-up in 1 Year A letter with findings and recommendations will be mailed to the patient. Reading Location: [id number]
== END | disposition home or self-care (01) ==
LOC: OPBD 07:27
PROVIDERS: PCP Family Medicine; Referring Provider Family Medicine; Visit Provider Family Medicine
DX: Z12.31 Encounter for screening mammogram for malignant neoplasm of breast (principal); Z78.0 Asymptomatic menopausal state
CPT/HCPCS: 77063; 77067; 77080

== ENCOUNTER → 2024-12-06 | Outpatient (CLI) | payer OTHER, SELFPAY ==
[2024-12-06 18:00] LABS: Absolute Neutrophil Count 3.2 X10^3/uL (2.0-7.7); Basophil# 0.04 X10^3/uL; Basophil% 0.7 % (0-1); Eosinophil# 0.16 X10^3/uL; Eosinophils% 2.8 % (0-5); Hematocrit 43.1 % (37-47); Hemoglobin 14.8 g/dL (12.0-15.0); Lymphocyte % 26.4 % (19-41); Mean Corp Hgb Conc 34.3 g/dL (32-36); Mean Corpuscular Hgb 31.2 pg (27.0-32.0); Mean Corpuscular Volume 90.9 fL (81-99); Mean Platelet Vol. 10.2 fl (6.2-12.0); Monocyte# 0.77 X10^3/uL; Monocyte% 13.5 % (0-10); NRBC Flagged by Analyzer 0 % (0-5); Neutrophil # 3.21 X10^3/uL (2.7-7.7); Neutrophil % 56.4 % (47-70); Platelet Count 310 K/mm3 (150-450); RBC Distribution Width CV 12.3 % (11.6-14.6); RBC Distribution Width SD 41.1 fl (35.1-43.9); Red Blood Count 4.74 M/mm3 (4.2-5.4); White Blood Count 5.7 K/mm3 (4.4-11.0)
[2024-12-06 18:24] LABS: ALB/GLOB Ratio 1.4 RATIO (0.9-2.4); AST(SGOT) 25 U/L (<=31); Alanine Aminotransfer ALT/SGPT 20 U/L (<=34); Albumin, Serum 4.5 g/dL (3.4-4.8); Alkaline Phosphatase 54 U/L (35-104); Anion Gap 12 (5-15); BUN 24 mg/dL (4-19); BUN/Creat Ratio 21.5 RATIO (10-20); Calcium,Total 9.6 mg/dL (7.6-11.0); Carbon Dioxide 23.1 mmol/L (21.0-32.0); Chloride 103 mmol/L (98-108); Creatinine, Serum 1.11 mg/dL (0.70-1.20); EST Glomerular Filtration Rate 56 (>60); Globulin 3.2 g/dL (2.2-4.2); Glucose 80 mg/dL (70-99); Potassium 4.4 mmol/L (3.3-5.1); Protein, Total 7.6 g/dL (5.9-8.4); Sodium Level 139 mmol/L (133-145); Total Bilirubin 0.44 mg/dL (0.00-1.30)
[2024-12-08 04:07] LABS: Immunoglobulin M 72 mg/dL (26-217)
== END | disposition home or self-care (01) ==
LOC: MTLAB 14:06
PROVIDERS: PCP Family Medicine; Referring Provider Internal Medicine; Visit Provider Internal Medicine
DX: Z79.899 Other long term (current) drug therapy (principal)
CPT/HCPCS: 36415; 80053; 82784; 85025